=== PATIENT | male | born 1970 | race African-American/Black ===

== ENCOUNTER 2022-10-11 18:54 | Outpatient (CLI) | payer OTHER, SELFPAY ==
[2022-10-11 11:14] LABS: Alanine Aminotransferase* 30 U/L (4-50); Cholesterol* 150 mg/dL (90-199)
[2022-10-11 11:15] LABS: HDL Cholesterol* 53 mg/dL (>=40); LDL Cholesterol Calculated 85 mg/dL (<100); Triglycerides* 60 mg/dL (40-149)
== END 2022-10-11 18:55 | disposition home or self-care (01) ==
PROVIDERS: PCP Family Medicine; Visit Provider Family Medicine
DX: E78.5 Hyperlipidemia, unspecified (principal)
CPT/HCPCS: 80061; 84460

== ENCOUNTER 2023-08-04 09:04 | Outpatient (CLI) | payer OTHER, SELFPAY | END 2023-08-04 09:05 | disposition home or self-care (01) | PROVIDERS: PCP Family Medicine; Visit Provider Family Medicine | DX: Z00.00 Encounter for general adult medical examination without abnormal findings (principal); E78.2 Mixed hyperlipidemia; E11.9 Type 2 diabetes mellitus without complications; Z12.5 Encounter for screening for malignant neoplasm of prostate | CPT/HCPCS: 80048; 80061; 84153 ==

== ENCOUNTER 2024-01-21 08:49 | Outpatient (CLI) | payer OTHER, SELFPAY | END 2024-01-21 08:50 | disposition home or self-care (01) | LOC: FBOREF 08:50 | PROVIDERS: PCP Family Medicine; Visit Provider Family Medicine | DX: R53.83 Other fatigue (principal); Z13.29 Encounter for screening for other suspected endocrine disorder | CPT/HCPCS: 84443 ==

== ENCOUNTER 2024-06-15 10:04 | Outpatient (CLI) | payer OTHER, SELFPAY | END 2024-06-15 10:05 | disposition home or self-care (01) | PROVIDERS: PCP Family Medicine; Visit Provider Family Medicine | DX: E78.2 Mixed hyperlipidemia (principal); E11.65 Type 2 diabetes mellitus with hyperglycemia; Z79.4 Long term (current) use of insulin | CPT/HCPCS: 80048; 80061; 84460 ==

== ENCOUNTER 2025-05-17 07:45 | Outpatient (CLI) | payer BC, SELFPAY | END 2025-05-17 07:46 | disposition home or self-care (01) | PROVIDERS: PCP Family Medicine; Visit Provider Family Medicine | DX: E78.2 Mixed hyperlipidemia (principal); E11.9 Type 2 diabetes mellitus without complications; Z12.5 Encounter for screening for malignant neoplasm of prostate; R42 Dizziness and giddiness; Z79.4 Long term (current) use of insulin | CPT/HCPCS: 80048; 80061; 84460; G0103 ==

== ENCOUNTER 2025-07-12 10:01 | Outpatient (CLI) | payer BC, SELFPAY | END 2025-07-12 10:02 | disposition home or self-care (01) | PROVIDERS: PCP Family Medicine; Visit Provider Family Medicine | DX: M25.50 Pain in unspecified joint (principal); R63.4 Abnormal weight loss; Z68.30 Body mass index [BMI] 30.0-30.9, adult; E11.9 Type 2 diabetes mellitus without complications; Z79.4 Long term (current) use of insulin | CPT/HCPCS: 80076; 82043; 82550; 82570; 84443; 85025; 86038; 86140; 86431 ==

== ENCOUNTER 2025-07-27 07:31 | Outpatient (CLI) | payer BC, SELFPAY ==
[2025-07-27 07:59] LABS: Creatinine* 0.8 mg/dL (0.5-1.5); Estimated Glomerular Filt Rate 105 ml/min
--- NOTE | 2025-07-27 08:00 | CRLHL7_ITS ---
For Patients: As a result of the Century Cures Act, medical imaging exams and procedure reports are released immediately into your electronic medical record. You may view this report before your referring provider. If you have questions, please contact your health care provider. Indication: Weight loss Technique: CT Abdomen/Pelvis W/ 100CC [id number] intravenous contrast Please note that all CT scans at this facility use dose modulation, iterative reconstruction, and/or weight-based dosing when appropriate to reduce radiation dose to as low as reasonably achievable. Comparison: None Findings: Mild atelectasis in both lung bases. No pleural effusion. Mild hepatic steatosis. No intrahepatic mass. Gallbladder unremarkable. Spleen within normal limits. Pancreas normal. Normal adrenal glands. Small right renal cyst. No renal stone. No adenopathy. No gastric outlet obstruction. Small bowel loops appear unremarkable. Normal bladder. Prostate is not enlarged. Colonic diverticulosis. No diverticulitis. Normal appendix. No intra-abdominal or intrapelvic adenopathy. Degenerative facet arthropathy L4-5 with slight degenerative anterolisthesis of L4 on L5. No vertebral body compression fracture. Fat filled right inguinal hernia noted measures 2.1 cm. Impression: Mild hepatic steatosis. 1.9 cm simple right renal cyst. Colonic diverticulosis. No diverticulitis or bowel obstruction. Please note that all CT scans at this facility use dose modulation, iterative reconstruction, and/or weight-based dosing when appropriate to reduce radiation dose to as low as reasonably achievable. Dictated by Eduardo Nielsen MD @ 07/27/2025 12:45:54 PM (Electronically Signed)
[2025-07-27] MEDS: PERFLUTREN LIPID MICROSPHERES 2 ML VIAL IVP (09:14)
--- NOTE | 2025-07-27 09:23 | PC.NURSE ---
20G IV placed in right wrist. Definity given per community service technician instruction. IV removed intact once test completed.
== END 2025-07-27 07:32 | disposition home or self-care (01) ==
PROVIDERS: PCP Family Medicine; Visit Provider Family Medicine
DX: R63.4 Abnormal weight loss (principal); R06.09 Other forms of dyspnea; K76.0 Fatty (change of) liver, not elsewhere classified; N28.1 Cyst of kidney, acquired; K57.30 Diverticulosis of large intestine without perforation or abscess without bleeding
CPT/HCPCS: 36415; 74177; 82565; 93306; Q9957; Q9967

== ENCOUNTER 2025-08-02 06:20 | Outpatient (CLI) | payer BC, SELFPAY ==
--- NOTE | 2025-08-02 07:51 | P.ANES_ITS ---
Anesthesia Charges Start Date/Time Anesthesia Start Date: 08/02/25 Anesthesia Start Time: 07:17 Stop Date/Time Anesthesia Stop Date: 08/02/25 Anesthesia Stop Time: 07:49 Coding CPT Codes CPT Codes: DIAMOND LWR INTST NDSC NOS - [id number] ([id number]) P2 - PATIENT W/MILD SYST DISEASE, QK - CASTING MACHINE SET UP OPERATOR 2-4 CNCRNT ANES PROC, QX - ORIENTAL RUG REPAIRER SVC W/ MD MED DIRECTION
--- NOTE | 2025-08-02 07:51 | W.ANESCHARGE ---
Anesthesia Charges Start Date/Time Anesthesia Start Date: 08/02/25 Anesthesia Start Time: 07:17 Stop Date/Time Anesthesia Stop Date: 08/02/25 Anesthesia Stop Time: 07:49 Coding CPT Codes CPT Codes: DIAMOND LWR INTST NDSC NOS - [id number] ([id number]) P2 - PATIENT W/MILD SYST DISEASE, QK - LOGGING OPERATIONS INSPECTOR 2-4 CNCRNT ANES PROC, QX - DIRECTOR OF PROFESSIONAL SERVICES SVC W/ MD MED DIRECTION
--- NOTE | 2025-08-02 07:54 | W.ANESCHARGE ---
Anesthesia Charges Start Date/Time Anesthesia Start Date: 08/02/25 Anesthesia Start Time: 07:17 Stop Date/Time Anesthesia Stop Date: 08/02/25 Anesthesia Stop Time: 07:49 Coding CPT Codes CPT Codes: ANES LWR INTST NDSC NOS - [id number] ([id number]) P2 - PATIENT W/MILD SYST DISEASE
== END 2025-08-02 06:21 | disposition home or self-care (01) ==
LOC: OP CLINIC 06:21
PROVIDERS: PCP Family Medicine; Visit Provider Surgery
DX: Z12.11 Encounter for screening for malignant neoplasm of colon (principal); K57.30 Diverticulosis of large intestine without perforation or abscess without bleeding; D12.1 Benign neoplasm of appendix; K63.5 Polyp of colon
CPT/HCPCS: 00811; 00812; 45385; 88305; J2704